=== PATIENT | male | born 1960 | race Caucasian/White ===

== ENCOUNTER 2020-07-15 17:54 | Emergency (ER) | payer OTHER ==
--- NOTE | 2020-07-15 17:04 | EDM.PDOC ---
ED HPI GENERAL MEDICAL PROBLEM - General Chief Complaint: General Stated Complaint: headache, ? COVID Time Seen by Provider: 07/15/20 18:10 Source of Information: Reports: Patient History Limitations: Reports: No Limitations - History of Present Illness INITIAL COMMENTS - FREE TEXT/NARRATIVE: This patient is a 59 year old male that presents to the ER. Patient reports that started on Friday with global headache, fatigue, decreased appetite. Patient reports that he had nausea today and has vomited x3 this afternoon. He denies head injury, unilateral weaknesses. Stroke score 0. GCS 15. The patient reports that he got tested for covid Friday at [facility] in [place] and he has not gotten his results yet. Patient reports his and all his children have tested positive for COVID. Onset Date: 07/10/20 Duration: Day(s): (5), Constant, Getting Worse Location: Reports: Head Quality: Reports: Pressure, Other ("going to explode") Severity: Severe Improves with: Reports: Medication (Tylenol and Motrin) Worsens with: Reports: None Associated Symptoms: Reports: Cough, Headaches, Loss of Appetite, Malaise, Nausea/Vomiting, Weakness (generally). Denies: Confusion, Chest Pain, cough w sputum, Diaphoresis, Fever/Chills, Rash, Seizure, Shortness of Breath, Syncope Treatments [employer]: Reports: Acetaminophen, NSAIDS Headache Pain Score (Numeric/FACES): 10 - Related Data Allergies Allergy/AdvReac Type Severity Reaction Status Date / Time No Known Allergies Allergy Verified 07/15/20 18:07 Home Meds: Home Meds . [No Known Home Meds] 07/15/20 [History] ED ROS GENERAL - Review of Systems Review Of Systems: See Below Constitutional: Reports: Malaise, Weakness (general), Fatigue, Decreased Appetite HEENT: Reports: Sinus Problem Respiratory: Denies: Shortness of Breath, Wheezing, Pleuritic Chest Pain, Cough, Sputum Cardiovascular: Reports: No Symptoms Endocrine: Reports: No Symptoms GI/Abdominal: Reports: Nausea, Vomiting. Denies: Abdominal Pain, Diarrhea : Reports: No Symptoms Musculoskeletal: Reports: Muscle Pain (body aches). Denies: Neck Pain Skin: Reports: No Symptoms Neurological: Reports: Headache. Denies: Confusion, Dizziness, Numbness, Seizure, Syncope, Tingling, Trouble Speaking, Difficulty Walking, Change in Speech, Gait Disturbance Psychiatric: Reports: No Symptoms Hematologic/Lymphatic: Reports: No Symptoms Immunologic: Reports: No Symptoms ED EXAM, GENERAL - Physical Exam Exam: See Below Exam Limited By: No Limitations General Appearance: Alert, WD/WN, No Apparent Distress Eye Exam: Bilateral Eye: EOMI, Normal Inspection, PERRL Ears: Normal External Exam, Normal Canal, Hearing Grossly Normal, Normal TMs Ear Exam: Bilateral Ear: Auricle Normal, Canal Normal, TM normal Nose: Normal Inspection, Normal Mucosa, No Blood Throat/Mouth: Normal Inspection, Normal Lips, Normal Teeth, Normal Gums, Normal Oropharynx, Normal Voice, No Airway Compromise Head: Atraumatic, Normocephalic Neck: Normal Inspection, Supple, Non-Tender, Full Range of Motion Respiratory/Chest: No Respiratory Distress, Lungs Clear, Normal Breath Sounds, No Accessory Muscle Use Cardiovascular: Normal Peripheral Pulses, Regular Rate, Rhythm, No Edema, No Gallop, No JVD, No Murmur, No Rub Peripheral Pulses: 2+: Radial (L), Radial (R), Posterior Tibial (L), Posterior Tibial (R) GI/Abdominal: Normal Bowel Sounds, Soft, Non-Tender, No Organomegaly, No Distention, No Mass, Pelvis Stable Back Exam: Normal Inspection Extremities: Normal Inspection, Normal Range of Motion, Non-Tender, No Pedal Edema, Normal Capillary Refill Neurological: Alert, Oriented, CN II-XII Intact, Normal Cognition, Normal Gait, No Motor/Sensory Deficits, Other (Stroke Score 0. GCS 15. ) Psychiatric: Normal Affect, Normal Mood Skin Exam: Warm, Dry, Intact, Normal Color, No Rash Lymphatic: No Adenopathy Course - Vital Signs Last Recorded V/S: Last Vital Signs Temp 99.4 F 07/15/20 19:52 Pulse 76 07/15/20 19:52 Resp 18 07/15/20 19:52 BP 115/76 07/15/20 19:52 Pulse Ox 93 L 07/15/20 19:52 - Orders/Labs/Meds Orders: Active Orders 24 hr Category Date Time Status Head wo Cont [CT] Stat Exams 07/15/20 18:33 Taken Isolation [COMM] Routine Oth 07/15/20 18:35 Active Labs: Laboratory Tests 07/15/20 07/15/20 07/15/20 Range/Units 18:35 18:35 18:35 WBC 3.4 L (5.0-10.0) 10^3/uL RBC 5.94 (4.50-6.00) 10^6/uL Hgb 17.5 (14.0-18.0) g/dL Hct 51.2 (40.0-54.0) % MCV 86.2 (82.0-94.0) fL MCH 29.5 (27.0-32.0) pg MCHC 34.2 (33.0-38.0) g/dL RDW Coeff of Sophie 13.6 (11.0-15.0) % Plt Count 99 L (150-400) 10^3/uL Neut % (Auto) 73.0 (35-85) % Lymph % (Auto) 21.1 (10-55) % Davison % (Auto) 5.9 (0-16) % Eos % (Auto) 0 (0-5) % Baso % (Auto) 0 (0-3) % Neut # (Auto) 2.49 (1.80-7.00) 10^3/uL Lymph # (Auto) 0.72 L (1.00-4.80) 10^3/uL Davison # (Auto) 0.20 (0.00-0.80) 10^3/uL Eos # (Auto) 0.00 (0.00-0.45) 10^3/uL Baso # (Auto) 0.00 10^3/uL PT (9.7-12.3) SEC INR (0.92-1.18) APTT (23.2-32.3) SEC Sodium 135 L (136-145) mEq/L Potassium 4.6 (3.5-5.0) mEq/L Chloride 101 (98-106) mEq/L Carbon Dioxide 27 (21-32) mmol/L BUN 19 H (7-18) mg/dL Creatinine 1.1 (0.7-1.3) mg/dL Est Cr Clr Drug Dosing 82.89 mL/min Estimated GFR (MDRD) > 60 (>=60) mL/min Glucose 109 H (75-99) mg/dL Lactic Acid (0.4-2.0) mmol/L Calcium 8.0 L (8.4-10.1) mg/dL Total Bilirubin 0.5 (0.0-1.0) mg/dL AST 30 (15-37) U/L ALT 38 (12-78) U/L Alkaline Phosphatase 57 (46-116) U/L Lactate Dehydrogenase 205 H (100-190) U/L Creatine Kinase 86 (35-232) U/L Total Protein 7.3 (6.4-8.2) g/dL Albumin 3.2 L (3.4-5.0) g/dL Amylase 66 (25-115) U/L Lipase 287 (73-393) U/L SARS CoV-2 RNA Rapid GINGER Positive H (NEGATIVE) 07/15/20 07/15/20 Range/Units 18:36 18:37 WBC (5.0-10.0) 10^3/uL RBC (4.50-6.00) 10^6/uL Hgb (14.0-18.0) g/dL Hct (40.0-54.0) % MCV (82.0-94.0) fL MCH (27.0-32.0) pg MCHC (33.0-38.0) g/dL RDW Coeff of Sophie (11.0-15.0) % Plt Count (150-400) 10^3/uL Neut % (Auto) (35-85) % Lymph % (Auto) (10-55) % Davison % (Auto) (0-16) % Eos % (Auto) (0-5) % Baso % (Auto) (0-3) % Neut # (Auto) (1.80-7.00) 10^3/uL Lymph # (Auto) (1.00-4.80) 10^3/uL Davison # (Auto) (0.00-0.80) 10^3/uL Eos # (Auto) (0.00-0.45) 10^3/uL Baso # (Auto) 10^3/uL PT 9.6 L (9.7-12.3) SEC INR 0.95 (0.92-1.18) APTT 26.8 (23.2-32.3) SEC Sodium (136-145) mEq/L Potassium (3.5-5.0) mEq/L Chloride (98-106) mEq/L Carbon Dioxide (21-32) mmol/L BUN (7-18) mg/dL Creatinine (0.7-1.3) mg/dL Est Cr Clr Drug Dosing mL/min Estimated GFR (MDRD) (>=60) mL/min Glucose (75-99) mg/dL Lactic Acid 0.8 (0.4-2.0) mmol/L Calcium (8.4-10.1) mg/dL Total Bilirubin (0.0-1.0) mg/dL AST (15-37) U/L ALT (12-78) U/L Alkaline Phosphatase (46-116) U/L Lactate Dehydrogenase (100-190) U/L Creatine Kinase (35-232) U/L Total Protein (6.4-8.2) g/dL Albumin (3.4-5.0) g/dL Amylase (25-115) U/L Lipase (73-393) U/L SARS CoV-2 RNA Rapid GINGER (NEGATIVE) Meds: Medications Discontinued Medications Generic Name Dose Route Start Last Admin Trade Name Wes PRN Reason Stop Dose Admin Hydrocodone Bitart/Acetaminophen 3 packet 07/15/20 20:08 07/15/20 20:19 Take Home: Acetaminophen/Hydrocod, 2 Tab Pack PO 07/15/20 20:09 3 packet ONETIME ONE Administration Sodium Chloride 500 mls @ 500 mls/hr 07/15/20 18:45 07/15/20 18:49 Normal Saline IV 500 mls/hr .BOLUS THERESA Administration Ketorolac Tromethamine 30 mg 07/15/20 20:04 07/15/20 20:17 Toradol IVPUSH 07/15/20 20:05 30 mg ONETIME ONE Administration Morphine Sulfate 4 mg 07/15/20 18:33 07/15/20 18:58 Morphine IVPUSH 07/15/20 18:34 4 mg ONETIME ONE Administration Ondansetron HCl 4 mg 07/15/20 18:34 07/15/20 18:50 Zofran IVPUSH 07/15/20 18:35 4 mg NOW STA Administration Ondansetron HCl 3 packet 07/15/20 20:08 07/15/20 20:19 Take Home: Ondansetron Odt 4 Mg, 2 Tab Pack PO 07/15/20 20:09 3 packet ONETIME ONE Administration - Radiology Interpretation Free Text/Narrative:: Head CT: no bleed, shift, stroke, ischemia. Possible sinusitis. CT Results Date: 07/15/20 CT Results Time: 19:50 - Re-Assessments/Exams Free Text/Narrative Re-Assessment/Exam: 07/15/20 20:00 Discussed with patient all results. I believe patient headache and sinusitis is viral related to his covid dx. Patient has no neuro complaints. He reports his head is much better and down to a 5/10. Will give Toradol IV prior to discharge with negative ct scan. No d-dimer was done due to no shortness of breath, respiratory distress, no tachycardia, no hypoxia. Patient has not vomited in the ER since getting Zofran. Will discharge home. 07/16/20 10:00 Patient called, gave permission to speak too. The reports the patient this morning has not been able to eat or drink of hold down meds. She reports that he is vomiting again today. She reports the patient just now took his Zofran. The asked what tests were done. With patient permission, I explained patient presentation, labs drawn, head ct done with results. I explained that he was educated to take the Zofran 30 minutes prior to eating or drinking. I also educated the that if she or he feels like they need to return to the ER for further evaluation, they may do so. She reported she was concerned that he was dehydrated. I educated her about his labs drawn yesterday. I did explain again to the , a lot can change from ER discharge. I explained to her to look for neurological changes as well. She reports he does not have these. I again, explained if she feels the patient needs to be seen in the ER to come to the ER. I again, explained if she feels he needs to be seen in the ER again, please proceed to the nearest ER. She reports that I was very helpful and said she understood what I was saying. Departure - Departure Time of Disposition: 20:04 Disposition: Home, Self-Care 01 Condition: Fair Clinical Impression: COVID-19 Headache Qualifiers: Headache type: other headache syndrome Qualified Code(s): G44.89 - Other headache syndrome - Discharge Information *PRESCRIPTION DRUG MONITORING PROGRAM REVIEWED*: Not Applicable *COPY OF PRESCRIPTION DRUG MONITORING REPORT IN PATIENT JING: Not Applicable Instructions: COVID-19 Frequently Asked Questions, COVID-19: How to Protect Yourself and Others - CDC, Prevent the Spread of COVID-19 if You Are Sick - [facility] Referrals: PCP,None [Primary Care Provider] - Forms: ED Department Discharge Additional Instructions: Followup with primary care provider Return to the ER for worsening of condition or any emergent concerns such as stroke like symptoms Tylenol or Motrin for fever or pain May take Excedrin for headache: DO NOT TAKE WITH MOTRIN May take [place] 5m325 1 pill every 6 hours #6 take home: for headache not relieved by above medications only: DO NOT TAKE WITH TYLENOL Zofran 4mg 1 pill under the tongue as needed every 6 hours as needed for nausea or vomiting #6 take home - My Orders Last 24 Hours: My Active Orders 07/15/20 18:33 Head wo Cont [CT] Stat 07/15/20 18:35 Isolation [COMM] Routine - Assessment/Plan Last 24 Hours: My Active Orders 07/15/20 18:33 Head wo Cont [CT] Stat 07/15/20 18:35 Isolation [COMM] Routine Plan: PLEASE SEE RN NOTE FOR PFSH
[2020-07-15] MEDS ORDERED: Morphine 2 MG/ML SYRINGE IVPUSH ONE (18:33)
[2020-07-15] MEDS ORDERED: Ondansetron 4 MG/2 ML SDV IVPUSH STA (18:34)
[2020-07-15] MEDS ORDERED: Sodium Chloride 0.9% 500 ML IV SCH (18:45)
[2020-07-15 19:15] LABS: CHLORIDE,CL 101 mEq/L (98-106); SODIUM,NA 135 mEq/L (136-145)
[2020-07-15 19:18] LABS: PTT,PARTIAL THROMBOPLSTIN TIME 26.8 SEC (23.2-32.3)
[2020-07-15] MEDS ORDERED: Ondansetron 4 MG Tab.DIS ONE (20:00)
[2020-07-15] MEDS ORDERED: Acetaminophen/HYDROcodone 325-5 MG Tab ONE (20:00)
[2020-07-15] MEDS ORDERED: Ketorolac 30 MG/ML SDV IVPUSH ONE (20:04)
[2020-07-15] MEDS ORDERED: Take Home: Acetaminophen/HYDROcodone 325-5 MG, 2 Tab Pack PO ONE (20:08)
[2020-07-15] MEDS ORDERED: Take Home: Ondansetron 4 MG Tab.DIS, 2 Tab Pack PO ONE (20:08)
== END 2020-07-15 20:27 | disposition home or self-care (01) ==
LOC: CC.ED 17:54
DX: U07.1 COVID-19 (principal); G44.89 Other headache syndrome
CPT/HCPCS: 36415; 70450; 80053; 82150; 82550; 83605; 83615; 83690; 85025; 85610; 85730; 87804; 96374; 96375; 99284-25; A9270-GY; J1885; J2270; J2405; J7040; U0002